=== PATIENT | female | born 1970 | race Caucasian/White ===

== ENCOUNTER 2020-12-07 06:39 | Outpatient (CLI) | payer BC, SELFPAY ==
--- NOTE | 2020-12-07 09:10 | WPDNEUROLOGY ---
Neurology EEG Report General Information Date of Study: 12/07/20 TEST eeg DIAGNOSIS Possible seizures CONDITION OF RECORDING awake drowsy and sleep EEG NUMBER [id number] CLINICAL HISTORY patient reported she has had 3 episodes of convulsions and shaking while sleeping. Does not know when they happen just telling her in the morning. EEG DESCRIPTION Basic resting occipital frequency consists of moderate amount of low to medium voltage 9 to 11 hertz per 2nd alpha admixed with low-voltage 15 to 18 hertz per 2nd beta. Bilateral symmetrical sharp vertex waves are seen. Bilateral symmetrical sleep activity seen during sleep. Hyperventilation not done. Photic stimulation produced normal drive. Non paroxysmal. Nonfocal. Nonlateralizing. IMPRESSION No significant abnormalities noted
== END 2020-12-07 06:40 | disposition home or self-care (01) ==
PROVIDERS: PCP Internal Medicine; Visit Provider Psychiatry & Neurology Neurology
DX: R56.9 Unspecified convulsions (principal)
CPT/HCPCS: 95819

== ENCOUNTER 2022-06-28 11:52 | Emergency (ER) | payer BC, SELFPAY ==
[2022-06-28 12:05] VITALS: BP 143/79; PULSE 77; RESP 16; TEMP 36.8; O2SAT 100
--- NOTE | 2022-06-28 12:13 | ED.GENADULT ---
HPI - General Adult General Chief complaint: Extremity Injury, Upper Stated complaint: lt shoulder pain Source: patient and RN notes reviewed History of Present Illness HPI narrative: 51 yo F presents to ED with complaints of left anterior shoulder pain that radiates around to her posterior shoulder. Pt states the pain started this past weekend and states she believes it's from helping her move a large refrigerator this past week. Pt states the pain increases when she attempts to abduct her left arm, mostly past shoulder height. Pt denies any numbness, tingling, chest pain, SOB, fevers, chills, or neck pain. Pt has been taking ibuprofen and Tylenol with minimal relief. Some parts of this dictation were generated by voice recognition software and may contain typographical and/or grammatical inaccuracies. Related Data Home Medications Medication Instructions Recorded Confirmed lisinopril 5 mg tablet 5 mg PO DAILY 11/20/20 06/28/22 pravastatin 40 mg tablet 40 mg PO DAILY 06/28/22 06/28/22 Allergies Allergy/AdvReac Type Severity Reaction Status Date / Time calcium carbonate Allergy Unknown Verified 06/28/22 11:59 GLUCOSAMINESULF Allergy Unknown unknown Uncoded 06/28/22 11:59 SHELLFISH Allergy Unknown FLUSHING/SWELLING Uncoded 06/28/22 11:59 OF FACE Review of Systems Review of Systems: CONSTITUTIONAL: Denies fever, chills, or sweats. EYES: Denies visual changes, redness, or discharge. ENT: Denies otalgia and sore throat CARDIOVASCULAR: Denies chest pain, palpitations, or edema. RESPIRATORY: Denies cough or dyspnea. GASTROINTESTINAL: Denies abdominal pain, nausea, vomiting, or diarrhea. GENITOURINARY: Denies dysuria or hematuria. SKIN: Denies rash or itching. MUSCULOSKELETAL: reports left shoulder pain NEUROLOGIC: Denies headache, numbness, or weakness. PMFSH Social History Social History Smoking status: Never smoker Alcohol intake: never Comments At the time of my signature, I reviewed and agree with the nursing past medical, surgical, social, and family history. There is no relevant family history pertinent to the patient complaint. Exam Narrative: GENERAL: This is a well-nourished, well-developed patient, in no apparent distress. HEAD: normocephalic, atraumatic. EYES: PERRL. Sclera clear/white. Vision is grossly intact. EARS: External ears normal, auditory canals clear and without drainage, TMs normal without perforation. Hearing grossly intact. NOSE: External nose normal with no obvious nasal discharge, nares without redness, no rhinorrhea. THROAT: Mucous membranes moist, posterior pharynx clear. NECK: Neck supple, non-tender without lymphadenopathy, masses or thyromegaly. CARDIOVASCULAR: Regular rate and rhythm without murmurs, gallops, or rubs. RESPIRATORY: Clear to auscultation. Breath sounds equal bilaterally. No wheezes, rales, or rhonchi. GASTROINTESTINAL: Abdomen soft, non-tender, nondistended. Bowel sounds are active. No hepato-splenomegaly, or palpable masses. No guarding. SKIN: warm, intact with no suspicious lesions or rash, good texture and turgor. NEURO: awake, alert, and oriented to person, place and time. There were no obvious focal neurologic abnormalities. EXTREMITIES: No clubbing, cyanosis, or edema. Difficulty abducting left arm, specifically past shoulder height due to pain. No tenderness noted. Course Course Level of Care: Express Care Visit Vital Signs Vital signs: Vital Signs Temperature 98.3 F 06/28/22 12:05 Pulse Rate 77 06/28/22 12:05 Respiratory Rate 16 06/28/22 12:05 Blood Pressure 143/79 H 06/28/22 12:05 Pulse Oximetry 100 06/28/22 12:05 Temperature 98.3 F 06/28/22 12:05 Pulse Rate 77 06/28/22 12:05 Respiratory Rate 16 06/28/22 12:05 Blood Pressure 143/79 H 06/28/22 12:05 Pulse Oximetry 100 06/28/22 12:05 Reviewed. Medical Decision Making [facility]
== END 2022-06-28 12:39 | disposition home or self-care (01) ==
PROVIDERS: Emergency Provider Nurse Practitioner Family; PCP Internal Medicine
DX: M25.512 Pain in left shoulder (principal); S46.912A Strain of unspecified muscle, fascia and tendon at shoulder and upper arm level, left arm, initial encounter; X50.0XXA Overexertion from strenuous movement or load, initial encounter; R01.1 Cardiac murmur, unspecified; J45.909 Unspecified asthma, uncomplicated; Z90.711 Acquired absence of uterus with remaining cervical stump
CPT/HCPCS: 99213; G0463